=== PATIENT | male | born 1945 | race Caucasian/White ===

== ENCOUNTER 2021-01-04 13:22 | Emergency (ER) | payer OTHER ==
[2021-01-04 13:51] VITALS: BMI 29.5
[2021-01-04] MEDS ORDERED: BAMLANIVIMAB 700 MG in SODIUM CHLORIDE 250 ML IVPB ONE (15:00)
[2021-01-04 15:39] LABS: HEMATOCRIT 37.5 % (35.4-49); HEMOGLOBIN 12.9 GM/dL (11.7-16.9); MCH 31.9 pg (25.7-33.7); MCHC 34.3 g/dl (32.0-35.9); MEAN CELL VOLUME 92.8 fl (80-96); MEAN PLT VOLUME 8.5 fl (7.5-11.1); PLATELET COUNT 129 K/MM3 (134-434); RBC 4.04 M/mm3 (4.00-5.60); RDW 14.6 % (11.9-15.9)
[2021-01-04 16:04] LABS: POTASSIUM 4.3 mmol/L (3.5-5.1)
[2021-01-04 16:05] LABS: CALCIUM 8.5 mg/dL (8.5-10.1)
[2021-01-04 16:06] LABS: BLOOD UREA NITROGEN 12.2 mg/dL (7-18)
[2021-01-04 16:09] LABS: CREATININE 0.9 mg/dL (0.55-1.3)
[2021-01-04 18:05] VITALS: BP 137/83; PULSE 70; TEMP 98.8
== END 2021-01-04 19:36 | disposition home or self-care (01) ==
LOC: JER 13:22 → JCOVINFU 13:22
DX: U07.1 COVID-19 (principal)
CPT/HCPCS: 36415; 80048; 85027; 99284-25; M0239; Q0239